=== PATIENT | female | born 1995 | race Caucasian/White ===

== ENCOUNTER 2019-10-05 23:22 | Emergency (ER) | payer SELFPAY ==
[~2019-10-05] VITALS: Ht 157.5 cm; Wt 72.6 kg
[2019-10-05 23:28] VITALS: BP_SYST 125
--- NOTE | 2019-10-05 23:33 | NUR ---
Patient to ER bed h1 for evaluation. Side rails up.
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
--- NOTE | 2019-10-05 23:45 | NUR ---
ER Dr. Love at bedside examining patient.
[2019-10-06 00:09] VITALS: BP_SYST 143
--- NOTE | 2019-10-06 00:09 | NUR ---
Patient given written and verbal discharge instructions and verbalizes understanding. ER MD Love discussed with patient the results and treatment provided. Patient in stable condition. ID arm band removed. No Rx given. Patient educated on pain management and to follow up with PMD. Pain Scale 0. Opportunity for questions provided and answered. Medication side effect fact sheet provided.
== END 2019-10-06 00:09 ==
LOC: SED 23:22
DX: Z02.89 Encounter for other administrative examinations (principal); F12.90 Cannabis use, unspecified, uncomplicated; V43.52XA Car driver injured in collision with other type car in traffic accident, initial encounter; Y92.413 State road as the place of occurrence of the external cause; Y93.89 Activity, other specified; Y99.8 Other external cause status
CPT/HCPCS: 99283